=== PATIENT | male | born 1990 | race Caucasian/White ===

== ENCOUNTER 2021-03-11 07:08 | Emergency (ER) | payer OTHER ==
[~2021-03-11] VITALS: Ht 165.1 cm; Wt 74.8 kg
[~2021-03-11 07:08] MED LIST: CEPH500 PO; CRUTCH4 USE; HYDACE5 PO
== END 2021-03-11 09:40 | disposition home or self-care (01) ==
LOC: ER 07:08
DX: S43.401A Unspecified sprain of right shoulder joint, initial encounter (principal); W01.0XXA Fall on same level from slipping, tripping and stumbling without subsequent striking against object, initial encounter
CPT/HCPCS: 73030; 99283-25

== ENCOUNTER 2025-02-06 03:21 | Emergency (ER) | payer OTHER ==
[~2025-02-06] VITALS: Ht 167.6 cm; Wt 77.1 kg
[2025-02-06 03:26] VITALS: BP 138/75
[2025-02-06] MEDS ORDERED: Diphth,Pertuss(Acell),Tet Vac 0.5 ML VIAL IM ONE (03:45)
== END 2025-02-06 05:35 | disposition home or self-care (01) ==
LOC: ER 03:21
DX: S01.112A Laceration without foreign body of left eyelid and periocular area, initial encounter (principal); S00.412A Abrasion of left ear, initial encounter; V29.91XA Electric (assisted) bicycle rider (driver) (passenger) injured in unspecified traffic accident, initial encounter
CPT/HCPCS: 12011; 70450; 90471; 90715; 99283-25